=== PATIENT | female | born 1935 | race Caucasian/White ===

== ENCOUNTER 2016-07-20 07:56 | Inpatient (IN) | payer MEDICARE, BC ==
[~2016-07-20] VITALS: Ht 149.9 cm; Wt 55.9 kg
[~2016-07-20 07:56] MED LIST: ACULAR OPHTH DR10 ML OP; ALPHAGAN 10 ML10 ML OU; ARTIFICIAL TEAR15 M1 OP; ASPI325T6 PO; ASPIRIN 81M81 MG/TA2 PO; ASPIRIN E.C. 8181 MG PO; BEPREVE15 MG/ML OU; BYSTOLIC5 MG PO; CALCIUM 600600 M2 PO; CALCIUM CARBON600 M2 PO; CATAPRES 0.1MG0.1 MG PO; COSOPT 2%-0.5%10 ML OU; COUMADIN 1MG1 MG/TAB PO; FERROUS SU325 MG/TAB PO; FOSAMAX 70MG TA70 MG PO; HYGROTON 2525 MG/TAB PO; HYGROTON25 MG; HYGROTON25 MG PO; LASIX 20MG TABL20 MG PO; LOPRESSOR 225 MG/TAB PO; MELATONIN5 M1 SL; MIRALAX PA17 GM/Dose PO; NORCO 325 MG-51 TAB PO; NORVASC 10MG10 MG PO; NORVASC2.5 MG PO; OCUFLOX 10 ML10 ML OP; OMEGA-3 FISH1000 MG PO; OMEGA-3 FISH1200 MG PO; PRAVACHOL 20MG20 MG PO; PRAVACHOL10 MG PO; PRED FORTE 1 ML1 ML OP; PRINIVIL10 MG PO; PRINZIDE 12.5 M1 TA1 PO; PROBIOTIC FORMU1 CAP PO; SENOKOT S 50 MG1 TAB PO; SYNTHROID0.05 MG/TA PO; VITAMIN D31000 IU PO; XALATAN EYE DROPS OU; ZANTAC 150MG T150 MG PO; ZOLOFT 50MG50 MG PO
[2016-07-20 08:08] VITALS: BP 153/55; PULSE 59; TEMP 97.5
[2016-07-20] MEDS ORDERED: MULTAQ400 MG PO (09:00)
[2016-07-20 09:14] LABS: BASO # 0.1 (0.0-0.2); BASO % 1.1 % (0.0-2.0); EOS # 0.2 (0.0-0.7); EOS % 3.5 % (0-4.0); GRAN # 3.3 (1.4-6.5); GRAN % 61.4 % (42.2-75.2); LYMPH # 1.3 (1.2-3.4); LYMPH % 23.2 % (20.0-51.0); MEAN CELL VOLUME 95 fl (80.0-100.0); MEAN CORPUSCULAR HEMOGLOBIN 31 pg (27.0-31.0); MEAN CORPUSCULAR HGB CONC 33 g/dl (33.0-37.0); MEAN PLATELET VOLUME 12.1 fl (7.4-10.4); MONO # 0.6 (0.1-0.6); MONO % 10.4 % (1.7-9.3); PLATELET COUNT 186 K/mm3 (130-400); RED BLOOD COUNT 3.84 M/mm3 (4.10-5.30); REDCELL DISTRIBUTION WIDTH-CV 13.2 % (11.5-14.5); WHITE BLOOD COUNT 5.4 K/mm3 (4.8-10.8)
[2016-07-20 09:15] LABS: HEMATOCRIT 36.3 % (37.0-47.0)
[2016-07-20 09:17] LABS: PROTHROMBIN TIME 42.2 SECONDS (9.7-12.8)
[2016-07-20 09:25] LABS: ADJUSTED CALCIUM 9.5 mg/dL (8.4-10.2); ALBUMIN 3.3 gm/dL (3.5-5.0); BILIRUBIN,TOTAL 0.6 mg/dL (0.0-1.0); CALCIUM 8.9 mg/dL (8.4-10.2); CREATININE, serum 1.22 mg/dL (0.52-1.25); MAGNESIUM 2.1 mg/dL (1.6-2.3); POTASSIUM 4.7 mmol/L (3.4-5.0); TOTAL PROTEIN 6.2 gm/dL (6.4-8.2)
[2016-07-20 09:29] LABS: INR 3.7 (0.8-3.0)
[2016-07-20 11:17] VITALS: BP 155/63; PULSE 84; TEMP 98.3
[2016-07-20] MEDS ORDERED: LASIX 20MG TABL20 MG PO (15:39)
[2016-07-20] MEDS ORDERED: CATAPRES-TTS 10.1 M1 TD (15:40)
[2016-07-20 16:20] VITALS: BP 118/47; PULSE 48; TEMP 98
[2016-07-20 19:29] VITALS: BP 140/54; PULSE 52; TEMP 98.6
[2016-07-20 23:00] VITALS: BP 156/53; PULSE 44; TEMP 97.6
[2016-07-21] VITALS (7 sets, daily range): BP systolic 111–209; BP diastolic 41–69; PULSE 41–52; TEMP 97.9–98.8
[2016-07-21] MEDS ORDERED: NORVASC 5MG5 MG/TAB PO (09:49)
[2016-07-22 03:47] VITALS: BP 150/62; PULSE 55; TEMP 98.4
[2016-07-22 08:04] VITALS: BP 143/53; PULSE 47; TEMP 98.3
[2016-07-22] MEDS ORDERED: BETAPACE 120MG120 MG PO (10:18)
== END 2016-07-22 12:51 | disposition home or self-care (01) | DRG 310 ==
LOC: MEDICAL 07:56
PROVIDERS: Internal Medicine Cardiovascular Disease
DX: I48.0 Paroxysmal atrial fibrillation (principal); E78.5 Hyperlipidemia, unspecified; I10 Essential (primary) hypertension; I08.0 Rheumatic disorders of both mitral and aortic valves; I27.2 Other secondary pulmonary hypertension

== ENCOUNTER 2016-12-30 08:40 | Day surgery (SDC) | payer MEDICARE, BC ==
[~2016-12-30] VITALS: Ht 149.9 cm; Wt 56.6 kg
[~2016-12-30 08:40] MED LIST changes: +BETAPACE 120MG120 MG PO; +CATAPRES-TTS 10.1 M1 TD; +MULTAQ400 MG PO; +NORVASC 5MG5 MG/TAB PO
[2016-12-30 09:35] LABS: HEMATOCRIT 40.7 % (37.0-47.0); HEMOGLOBIN 13.6 g/dl (12.5-16.0); MEAN CELL VOLUME 97 fl (80.0-100.0); MEAN CORPUSCULAR HEMOGLOBIN 32 pg (27.0-31.0); MEAN CORPUSCULAR HGB CONC 33 g/dl (33.0-37.0); MEAN PLATELET VOLUME 11.3 fl (7.4-10.4); PLATELET COUNT 190 K/mm3 (130-400); RED BLOOD COUNT 4.21 M/mm3 (4.10-5.30); REDCELL DISTRIBUTION WIDTH-CV 12.8 % (11.5-14.5); WHITE BLOOD COUNT 6.5 K/mm3 (4.8-10.8)
[2016-12-30 09:41] LABS: INR 1.2 (0.8-3.0); PROTHROMBIN TIME 13.2 SECONDS (9.7-12.8)
[2016-12-30] MEDS ORDERED: ASMANEX TW110 MCG/Ac IH (09:43)
[2016-12-30 09:45] LABS: CALCIUM 9.2 mg/dL (8.4-10.2); CREATININE, serum 1.02 mg/dL (0.52-1.25); POTASSIUM 4.9 mmol/L (3.4-5.0)
[2016-12-30 10:50] VITALS: BP 187/72; PULSE 43
[2016-12-30 15:18] VITALS: BP 149/61; PULSE 60; TEMP 98.4
[2016-12-30 19:46] VITALS: BP 131/57; PULSE 60; TEMP 98.4
[2016-12-30 23:40] VITALS: BP 123/43; PULSE 61; TEMP 98.3
[2016-12-31 04:20] VITALS: BP 144/56; PULSE 61; TEMP 98
[2016-12-31 09:28] VITALS: BP 100/42; BP 84/34; PULSE 63; TEMP 98.5
== END 2016-12-31 13:30 | disposition home or self-care (01) ==
LOC: COL.CAR 08:40 → MEDICAL 13:09 → COL.CAR 12-31 13:30
PROVIDERS: Internal Medicine Cardiovascular Disease
DX: I49.5 Sick sinus syndrome (principal); Z45.09 Encounter for adjustment and management of other cardiac device; I10 Essential (primary) hypertension; J45.909 Unspecified asthma, uncomplicated; I12.9 Hypertensive chronic kidney disease with stage 1 through stage 4 chronic kidney disease, or unspecified chronic kidney disease; N18.9 Chronic kidney disease, unspecified; I27.2 Other secondary pulmonary hypertension; E87.5 Hyperkalemia; I34.0 Nonrheumatic mitral (valve) insufficiency; E78.5 Hyperlipidemia, unspecified; R60.9 Edema, unspecified; I08.0 Rheumatic disorders of both mitral and aortic valves; M48.00 Spinal stenosis, site unspecified; I25.10 Atherosclerotic heart disease of native coronary artery without angina pectoris; H40.9 Unspecified glaucoma; E03.9 Hypothyroidism, unspecified; M81.0 Age-related osteoporosis without current pathological fracture; I48.0 Paroxysmal atrial fibrillation; Z79.01 Long term (current) use of anticoagulants; Z80.9 Family history of malignant neoplasm, unspecified
CPT/HCPCS: OP; C1769; C1785; C1898; J0690; J2250; J3010; J7030

== ENCOUNTER 2018-05-22 18:45 | Emergency (ER) | payer MEDICARE, BC ==
[~2018-05-22] VITALS: Ht 149.9 cm; Wt 53.2 kg
[~2018-05-22 18:45] MED LIST changes: +ASMANEX TW110 MCG/Ac IH
[2018-05-22 18:58] VITALS: TEMP 98
[2018-05-22] MEDS ORDERED: OS-CAL 500 + D1 TAB (19:10)
[2018-05-22] MEDS ORDERED: PROAIR HFA0.09 MG/AC IH (19:13)
[2018-05-22] MEDS ORDERED: COUMADIN 2MG2 MG/TAB PO (19:15)
[2018-05-22] MEDS ORDERED: RHOPRESSA2.5 ML OU (19:16)
[2018-05-22 19:57] LABS: BASO # 0.1 (0.0-0.2); BASO % 0.9 % (0.0-2.0); EOS # 0.2 (0.0-0.7); EOS % 1.8 % (0-4.0); GRAN # 4.8 (1.4-6.5); GRAN % 58.5 % (42.2-75.2); HEMATOCRIT 45.1 % (37.0-47.0); HEMOGLOBIN 15.3 g/dl (12.5-16.0); LYMPH # 2.3 (1.2-3.4); LYMPH % 28.8 % (20.0-51.0); MEAN CELL VOLUME 94 fl (80.0-100.0); MEAN CORPUSCULAR HEMOGLOBIN 32 pg (27.0-31.0); MEAN CORPUSCULAR HGB CONC 34 g/dl (33.0-37.0); MEAN PLATELET VOLUME 12.2 fl (7.4-10.4); MONO # 0.8 (0.1-0.6); MONO % 9.6 % (1.7-9.3); PLATELET COUNT 195 K/mm3 (130-400); REDCELL DISTRIBUTION WIDTH-CV 12.7 % (11.5-14.5)
[2018-05-22 20:03] LABS: INR 3.8 (0.8-3.0)
[2018-05-22 20:06] LABS: ALANINE AMINOTRANSFERASE 31 U/L (9-52); ALBUMIN 4.3 gm/dL (3.5-5.0); ALKALINE PHOSPHATASE 75 U/L (50-136); ANION GAP 8 mmol/L (7-16); AST,SGOT 41 U/L (15-37); BLOOD UREA NITROGEN 16 mg/dL (7-17); CALCIUM 9.5 mg/dL (8.4-10.2); CARBON DIOXIDE 25 mmol/L (22-30); CHLORIDE 106 mmol/L (98-107); CREATININE, serum 1.07 mg/dL (0.52-1.25); GLUCOSE 98 mg/dL (74-106); POTASSIUM 4.2 mmol/L (3.4-5.0); SODIUM 139 mmol/L (137-145); TOTAL PROTEIN 7.7 gm/dL (6.4-8.2)
[2018-05-22 20:18] LABS: TROPONIN-I < 0.012 ng/mL (0.000-0.034)
[2018-05-22 21:09] VITALS: BP 111/48; PULSE 60
== END 2018-05-22 21:09 | disposition home or self-care (01) ==
LOC: COL.ER 18:45
PROVIDERS: Emergency Medicine
DX: I10 Essential (primary) hypertension (principal); E03.9 Hypothyroidism, unspecified; I48.91 Unspecified atrial fibrillation; E78.5 Hyperlipidemia, unspecified; J44.9 Chronic obstructive pulmonary disease, unspecified; Z79.82 Long term (current) use of aspirin

== ENCOUNTER 2021-04-30 14:29 | Inpatient (IN) | payer MEDICARE, BC ==
[~2021-04-30] VITALS: Ht 149.9 cm; Wt 48.8 kg
[~2021-04-30 14:29] MED LIST changes: +COUMADIN 2MG2 MG/TAB PO; +OS-CAL 500 + D1 TAB; +PROAIR HFA0.09 MG/AC IH; +RHOPRESSA2.5 ML OU
[2021-04-30 17:19] LABS: BASO # 0.1 K/mm3 (0.0-0.2); BASO % 0.4 % (0.0-2.0); GRAN # 15.7 K/mm3 (1.4-6.5); GRAN % 85.3 % (42.2-75.2); HEMATOCRIT 40.2 % (37.0-47.0); HEMOGLOBIN 13.7 g/dl (12.5-16.0); LYMPH # 1.3 K/mm3 (1.2-3.4); LYMPH % 7.1 % (20.0-51.0); MEAN CELL VOLUME 92 fl (80.0-100.0); MEAN CORPUSCULAR HEMOGLOBIN 31 pg (27-31); MEAN CORPUSCULAR HGB CONC 34 g/dl (33.0-37.0); MONO # 1.2 K/mm3 (0.1-0.6); MONO % 6.7 % (1.7-9.3); PLATELET COUNT 238 K/mm3 (130-400); RED BLOOD COUNT 4.36 M/mm3 (4.10-5.30); REDCELL DISTRIBUTION WIDTH-CV 12.7 % (11.5-14.5)
[2021-04-30 17:26] LABS: INR 3.8 (0.8-3.0)
[2021-04-30 17:27] LABS: COLLECTION METHOD CATHETER
[2021-04-30 17:32] LABS: MUCOUS Present (NOT PRESENT); PH 5 (5-8); SQUAMOUS EPITHELIAL 0-2 /hpf (0-10); URINE APPEARANCE Clear (CLEAR/HAZY); URINE BACTERIA None Seen (NONE SEEN); URINE BILIRUBIN Negative (NEGATIVE); URINE BLOOD 1+ (NEGATIVE); URINE COLOR Yellow (YELLOW); URINE GLUCOSE Negative (NEGATIVE); URINE KETONE Trace (NEGATIVE); URINE LEUKOCYTE ESTERASE Negative (NEGATIVE); URINE NITRATE Negative (NEGATIVE); URINE PROTEIN(semi-quant) Negative (NEGATIVE); URINE UROBILINOGEN Negative (NEGATIVE)
[2021-04-30 17:48] LABS: BILIRUBIN,TOTAL 0.8 mg/dL (0.2-1.2); CALCIUM 9.2 mg/dL (8.4-10.2); CREATININE, serum 1.39 mg/dL (0.57-1.11); POTASSIUM 3.7 mmol/L (3.5-4.5); TOTAL PROTEIN 7.7 gm/dL (6.2-8.1)
--- NOTE | 2021-04-30 20:50 | NUR ---
Pt. arrived to the floor via stretcher. Pt. transfered to bed with 3 assist and slide board. Pt. is A&OX3, assessment complete. INT to lt. ac patent. Pt. reports pain to rt. hip at a 7 on pain scale. Gave pain meds. Call light within reach.
[2021-04-30] MEDS ORDERED: COUMADIN 1MG1 MG/TAB PO (21:03)
[2021-04-30] MEDS ORDERED: COUMADIN 2MG2 MG/TAB PO (21:05)
[2021-04-30] MEDS ORDERED: COLACE 100100 MG/CAP PO (21:06)
[2021-04-30] MEDS ORDERED: MIRALAX PA17 GM/Dose PO (21:07)
[2021-04-30] MEDS ORDERED: HCTZ12.5TAB PO (21:09)
[2021-04-30 23:10] VITALS: BP 135/59; PULSE 61; TEMP 100.8
[2021-04-30 23:50] VITALS: BP 107/47; PULSE 60; TEMP 98.4
[2021-05-01 03:54] VITALS: BP 122/53; PULSE 60; TEMP 98.1
[2021-05-01 08:00] VITALS: BP 121/67; PULSE 59; TEMP 98.7
[2021-05-01 08:45] LABS: HEMOGLOBIN 12.5 g/dl (12.5-16.0); MEAN CELL VOLUME 92 fl (80.0-100.0); MEAN CORPUSCULAR HEMOGLOBIN 32 pg (27-31); MEAN CORPUSCULAR HGB CONC 34 g/dl (33.0-37.0); MEAN PLATELET VOLUME 12.2 fl (7.4-10.4); PLATELET COUNT 191 K/mm3 (130-400); RED BLOOD COUNT 3.96 M/mm3 (4.10-5.30)
[2021-05-01 08:47] LABS: HEMATOCRIT 36.6 % (37.0-47.0)
[2021-05-01 08:58] LABS: CALCIUM 8.6 mg/dL (8.4-10.2); CREATININE, serum 1.26 mg/dL (0.57-1.11); INR 3.6 (0.8-3.0); POTASSIUM 3.6 mmol/L (3.5-4.5); PROTHROMBIN TIME 40.7 SECONDS (9.7-12.8)
[2021-05-01 10:05] LABS: BAND 2 % (0-10); LYMPHOCYTE 5 % (20.0-51.0); NEUTROPHILS 81 % (42.0-75.2); PLATELET ESTIMATE NORMAL (NORMAL)
--- NOTE | 2021-05-01 10:34 | NUR ---
Initial visit; Patient thanked Tax Agent for looking in on her and offering God's blessings.
--- NOTE | 2021-05-01 11:12 | NUR ---
[facility] met with patient to discuss discharge planning. Patient's son, Shant (ph#[phone]) is at bedside. Patient lives alone in [place] and sees Dr. Peggy Talavera for primary care. Patient obtains medications from [facility] with no difficulties and normally uses a cane for ambulation. Patient is normally independent with ADLS. Patient states she has DPOA-HC that designates her children, Shant and Janessa. SW did not locate copy in EMR. SW discussed the possible need for rehab and patient is agreeable to this if it's determined to be needed. SW reviewed options including locals SNFs and IPR. Patient's preferences for rehab are 1)[facility] and 2) [facility]. SUKUMAR contacted Anuradha at [facility] and faxed referral. SUKUMAR contacted Anastasia at [facility] who advised they are not able to take new referrals at this time. Discharge Plan: Pending referral from [facility] SNF
[2021-05-01 11:18] VITALS: BP 146/59; PULSE 60; TEMP 98.9
--- NOTE | 2021-05-01 13:25 | NUR ---
Anuradha at [facility] advised they are able to accept patient for skilled stay.
[2021-05-01 15:29] VITALS: BP 107/70; PULSE 60; TEMP 97.9
[2021-05-01 19:36] VITALS: BP 123/54; PULSE 60; TEMP 97.9
[2021-05-02] VITALS (12 sets, daily range): BP systolic 98–139; BP diastolic 48–101; PULSE 60–125; TEMP 97.3–98.5
--- NOTE | 2021-05-02 06:33 | NUR ---
PT CONFUSED AND ATTEMPTING TO GET OUT OF BED, STATES SHE IS GOING HOME, C/O SEVERE PAIN IN RIGHT HIP, REFUSES TO TAKE ANY MEDS PO, HAS BEEN INCONTINENT OF STOOL X3 THIS SHIFT, WAS REFUSING TO LET STAFF CLEAN HER UP, RN AND SHAREPOINT ARCHITECT ABLE TO CONVINCE PT SHE COULD NOT SIT IN FECES. THIS AM, HAS BEGUN PULLING AT IV SITE AND IV TUBING, SITE SECURED WITH RAMONA WRAP. DUMONT SECURED TO LEG WITH STAT LOCK, DRAINING CLEAR YELLOW URINE. PT REORIENTED TO WHY AND WHERE SHE IS. BED ALARM ON, CALL LIGHT IN REACH. NPO SINCE MIDNIGHT
[2021-05-02 07:19] LABS: INR 1.4 (0.8-3.0); PROTHROMBIN TIME 15.6 SECONDS (9.7-12.8)
[2021-05-02 07:38] LABS: CALCIUM 8.2 mg/dL (8.4-10.2); CREATININE, serum 1.01 mg/dL (0.57-1.11)
[2021-05-02 07:43] LABS: POTASSIUM 2.9 mmol/L (3.5-4.5)
--- NOTE | 2021-05-02 08:02 | NUR ---
TRIED TO REACH SON JANET TO NOTIFIY PT OF SURGERY THIS MORNING, LEFT VOICEMAIL AND NO ANSWER. CALLED THE NUMBER
[2021-05-02 08:10] LABS: HEMOGLOBIN 12.3 g/dl (12.5-16.0); MEAN CELL VOLUME 90 fl (80.0-100.0); MEAN CORPUSCULAR HEMOGLOBIN 31 pg (27-31); MEAN CORPUSCULAR HGB CONC 34 g/dl (33.0-37.0); MEAN PLATELET VOLUME 12.9 fl (7.4-10.4); PLATELET COUNT 180 K/mm3 (130-400); RED BLOOD COUNT 3.96 M/mm3 (4.10-5.30); REDCELL DISTRIBUTION WIDTH-CV 12.8 % (11.5-14.5)
[2021-05-02 08:13] LABS: HEMATOCRIT 35.8 % (37.0-47.0)
[2021-05-02 09:59] LABS: BAND 4 % (0-10); LYMPHOCYTE 4 % (20.0-51.0); NEUTROPHILS 82 % (42.0-75.2); PLATELET ESTIMATE NORMAL (NORMAL)
--- NOTE | 2021-05-02 14:36 | NUR ---
PT WITH INCREASED CONFUSION THIS SHIFT, FAMILY MEMBERS HAVING TO REMIND HER SHE'S IN THE HOSPITAL. ATTEMPTED TO GET OUT OF BED ONCE. POTASSIUM WAS REPLACED AND IS NOW 4.O. PT TAKEN TO HAVE SURGICAL REPAIR OF RIGHT HIP AT AROUND 1415.
--- NOTE | 2021-05-02 17:42 | NUR ---
PT ARRIVED BACK TO ROOM 342 VIA BED. VSS. CMS INTACT, NO DRAINAGE NOTED TO RIGHT HIP DRAINAGE. PT ALERT BUT DISORIENTED TO SITUATION. PT DENIES PAIN. ICE PLACED TO HIP. ROSANNA FERRARO AND SCD'S ON. CALL LIGHT WITHIN REACH.
[2021-05-03 03:57] VITALS: BP 114/85; PULSE 102; TEMP 97.1
--- NOTE | 2021-05-03 04:49 | NUR ---
PT HAS RESTED/SLEPT MOST OF THE NIGHT. PT STATES HER PAIN IS MINIMAL UNLESS SHE MOVES. PT WAS VERY DISORIENTED LAST NIGHT, EXTREMELY FORGETFUL. PT'S SON STAYED FOR SEVERAL HOURS AFTER [facility]FEW TO HELP RE-ORIENT HER. SHE SEEMS A LITTLE LESS CONFUSED/FORGETFUL THIS MORNING. AVOIDING NARCOTICS TO PREVENT INCREASED CONFUSION.
--- NOTE | 2021-05-03 06:58 | NUR ---
bedside shift report received from DANIEL Guaman
[2021-05-03 07:01] VITALS: BP 106/64; PULSE 102; TEMP 97.6
[2021-05-03 07:57] LABS: INR 1.1 (0.8-3.0); PROTHROMBIN TIME 12.6 SECONDS (9.7-12.8)
[2021-05-03 08:08] LABS: CALCIUM 8.2 mg/dL (8.4-10.2); CREATININE, serum 0.95 mg/dL (0.57-1.11); POTASSIUM 4.1 mmol/L (3.5-4.5)
--- NOTE | 2021-05-03 08:09 | NUR ---
sitting up in bed eating breakfast, son at bedside
[2021-05-03 08:47] LABS: BASO % 0.3 % (0.0-2.0); EOS # 0.1 K/mm3 (0.0-0.7); EOS % 0.8 % (0.0-4.0); GRAN # 12.5 K/mm3 (1.4-6.5); GRAN % 87.4 % (42.2-75.2); HEMOGLOBIN 11.9 g/dl (12.5-16.0); LYMPH % 6.7 % (20.0-51.0); MEAN CELL VOLUME 91 fl (80.0-100.0); MEAN CORPUSCULAR HEMOGLOBIN 31 pg (27-31); MEAN CORPUSCULAR HGB CONC 35 g/dl (33.0-37.0); MEAN PLATELET VOLUME 13.3 fl (7.4-10.4); MONO # 0.6 K/mm3 (0.1-0.6); MONO % 4.4 % (1.7-9.3); PLATELET COUNT 164 K/mm3 (130-400); RED BLOOD COUNT 3.79 M/mm3 (4.10-5.30); REDCELL DISTRIBUTION WIDTH-CV 12.9 % (11.5-14.5)
[2021-05-03 08:48] LABS: HEMATOCRIT 34.5 % (37.0-47.0)
--- NOTE | 2021-05-03 09:10 | NUR ---
had breakfast and tolerated well, is oriented this am, full assessment completed, see interventions for further info, denies needs
--- NOTE | 2021-05-03 09:54 | NUR ---
physical therapy in to work with patient
--- NOTE | 2021-05-03 10:06 | NUR ---
sitting up in recliner after working with therapy, denies pain or needs at this time
--- NOTE | 2021-05-03 11:10 | NUR ---
Dr Deluca in to see patient
[2021-05-03 11:25] VITALS: BP 108/65; PULSE 106; TEMP 97.3
--- NOTE | 2021-05-03 12:00 | NUR ---
remains in chair, lunch ordered
--- NOTE | 2021-05-03 14:00 | NUR ---
assisted back to bed after lunch, juarez catheter discontinued, had been incontinent of very small amount stool and care provided, instructed to call when she needs to voids and verbalizes understanding
[2021-05-03 16:06] VITALS: BP 103/77; PULSE 106; TEMP 98.1
--- NOTE | 2021-05-03 17:00 | NUR ---
has ordered supper, denies urge to void
--- NOTE | 2021-05-03 18:46 | NUR ---
bedside shift report given to DANIEL Guaman
[2021-05-03 20:01] VITALS: BP 131/101; PULSE 90; TEMP 98
--- NOTE | 2021-05-03 22:00 | NUR ---
PT UNABLE TO URINATE. BLADDER SCAN READING POST VOID ATTEMPT WAS 210 mL.
[2021-05-04 00:21] VITALS: BP 114/74; PULSE 101; TEMP 98.6
[2021-05-04 04:29] VITALS: BP 157/70; PULSE 65; TEMP 98.1
--- NOTE | 2021-05-04 05:32 | NUR ---
RESTING QUIETLY. NO N/V. PT'S MENTAL STATUS MUSCH IMPROVED OVER 24 HOURS AGO. PT VOIDING. GAIT FAIRLY STEADY USING WALKER.
[2021-05-04 07:22] LABS: HEMATOCRIT 31.6 % (37.0-47.0)
[2021-05-04 07:33] LABS: CALCIUM 8.4 mg/dL (8.4-10.2); CREATININE, serum 1.36 mg/dL (0.57-1.11); POTASSIUM 3.9 mmol/L (3.5-4.5)
[2021-05-04 07:57] VITALS: BP 145/51; PULSE 63; TEMP 98.1
[2021-05-04 08:30] LABS: BASO % 0.2 % (0.0-2.0); GRAN # 15.3 K/mm3 (1.4-6.5); GRAN % 80.1 % (42.2-75.2); LYMPH # 2.1 K/mm3 (1.2-3.4); LYMPH % 11.1 % (20.0-51.0); MEAN CELL VOLUME 93 fl (80.0-100.0); MEAN CORPUSCULAR HEMOGLOBIN 32 pg (27-31); MEAN CORPUSCULAR HGB CONC 34 g/dl (33.0-37.0); MONO # 1.5 K/mm3 (0.1-0.6); MONO % 7.8 % (1.7-9.3); PLATELET COUNT 214 K/mm3 (130-400); RED BLOOD COUNT 3.47 M/mm3 (4.10-5.30)
[2021-05-04 08:40] LABS: INR 1.1 (0.8-3.0)
[2021-05-04 08:47] LABS: HEMATOCRIT 32.3 % (37.0-47.0)
--- NOTE | 2021-05-04 09:30 | NUR ---
Pt doing well this morning. She has minimal complaints/needs. Pt is very pleasent. Physicians have discussed her going to inpatient rehab which she will be screened for. Pt denies any needs, call light withing reach.
[2021-05-04 12:02] VITALS: BP 117/47; PULSE 65; TEMP 97.9
[2021-05-04] MEDS ORDERED: DULCOLAX S10 MG/SUPP RC (12:13)
[2021-05-04] MEDS ORDERED: MULTI VITAMINS1 TAB PO (12:13)
[2021-05-04] MEDS ORDERED: VITAMINC500CH PO (12:13)
[2021-05-04] MEDS ORDERED: TYLENOL 500MG500 MG PO (12:14)
[2021-05-04] MEDS ORDERED: OSCAL 500 TAB500 MG PO (12:14)
[2021-05-04] MEDS ORDERED: FISH OIL1000 MG PO (12:14)
[2021-05-04] MEDS ORDERED: NORCO 325 MG-51 TAB PO (12:15)
[2021-05-04] MEDS ORDERED: COUMADIN 2MG2 MG/TAB PO (12:17)
[2021-05-04] MEDS ORDERED: LOVENOX 8080 MG/0.8 SQ (12:17)
--- NOTE | 2021-05-04 12:37 | NUR ---
Called and updated pt's daughter on how she is doing and transferring to [facility]. Waiting to get UA before she is moved over. Pt is sitting up in the chair, minimal complaints. She is not wanting lunch, she reports that she is still full from breakfast. Call light within reach, will continu to monitor
[2021-05-04 12:47] LABS: COLLECTION METHOD CATHETER
--- NOTE | 2021-05-04 12:50 | NUR ---
IPR was consulted. Claudia, IPR Director, reports that they are able to accept the patient today. SW contacted and updated the patient's son, Shant. Shant is in agreement to the plan. The patient is to discharge today, 05/04, to [facility]. No additional needs at this time.
[2021-05-04 13:04] LABS: PH 5 (5-8); SQUAMOUS EPITHELIAL 0-2 /hpf (0-10); URINE APPEARANCE Hazy (CLEAR/HAZY); URINE BACTERIA Rare /hpf (NONE SEEN); URINE BILIRUBIN Negative (NEGATIVE); URINE BLOOD Negative (NEGATIVE); URINE COLOR Yellow (YELLOW); URINE GLUCOSE Negative (NEGATIVE); URINE KETONE Negative (NEGATIVE); URINE LEUKOCYTE ESTERASE 1+ (NEGATIVE); URINE NITRATE Negative (NEGATIVE); URINE PROTEIN(semi-quant) Negative (NEGATIVE)
[2021-05-04 13:05] LABS: URINE UROBILINOGEN 2.0 mg/dL (NEGATIVE)
[2021-05-04] MEDS ORDERED: OMNICEF 300MG300 MG PO (13:25)
--- NOTE | 2021-05-04 14:20 | NUR ---
Pt moved over to inpatient rehab
== END 2021-05-04 14:20 | DRG 481 ==
LOC: COL.ER 14:29 → SURG 16:29
PROVIDERS: Orthopaedic Surgery; Physician Assistant; ADMIT Internal Medicine
PROC: 0QS606Z Reposition Right Upper Femur with Intramedullary Internal Fixation Device, Open Approach (ICD-10-PCS; principal; 2021-05-02 08:00)
DX: S72.141A Displaced intertrochanteric fracture of right femur, initial encounter for closed fracture (principal); E87.1 Hypo-osmolality and hyponatremia; I48.0 Paroxysmal atrial fibrillation; I25.10 Atherosclerotic heart disease of native coronary artery without angina pectoris; E78.5 Hyperlipidemia, unspecified; I12.9 Hypertensive chronic kidney disease with stage 1 through stage 4 chronic kidney disease, or unspecified chronic kidney disease; N18.30 Chronic kidney disease, stage 3 unspecified; Z90.49 Acquired absence of other specified parts of digestive tract; Z85.828 Personal history of other malignant neoplasm of skin; Z98.49 Cataract extraction status, unspecified eye; I27.20 Pulmonary hypertension, unspecified; Z79.82 Long term (current) use of aspirin; E03.9 Hypothyroidism, unspecified; Z79.01 Long term (current) use of anticoagulants; R79.1 Abnormal coagulation profile; Z95.0 Presence of cardiac pacemaker; E87.6 Hypokalemia; W19.XXXA Unspecified fall, initial encounter; R50.9 Fever, unspecified
CPT/HCPCS: 99223-AI; 99232-AI; 99239; A4314; A9284; C1713; J0690; J1650; J2270; J3480

== ENCOUNTER 2021-05-04 11:50 | Inpatient (IN) | payer MEDICARE, BC ==
[~2021-05-04] VITALS: Ht 147.3 cm; Wt 50.1 kg
[~2021-05-04 11:50] MED LIST changes: +COLACE 100100 MG/CAP PO; +HCTZ12.5TAB PO
[2021-05-04] MEDS ORDERED: VITAMINC500CH PO (12:13)
[2021-05-04] MEDS ORDERED: MULTI VITAMINS1 TAB PO (12:13)
[2021-05-04] MEDS ORDERED: DULCOLAX S10 MG/SUPP RC (12:13)
[2021-05-04] MEDS ORDERED: TYLENOL 500MG500 MG PO (12:14)
[2021-05-04] MEDS ORDERED: FISH OIL1000 MG PO (12:14)
[2021-05-04] MEDS ORDERED: OSCAL 500 TAB500 MG PO (12:14)
[2021-05-04] MEDS ORDERED: NORCO 325 MG-51 TAB PO (12:15)
[2021-05-04] MEDS ORDERED: COUMADIN 2MG2 MG/TAB PO (12:17)
[2021-05-04] MEDS ORDERED: LOVENOX 8080 MG/0.8 SQ (12:17)
[2021-05-04] MEDS ORDERED: OMNICEF 300MG300 MG PO (13:25)
--- NOTE | 2021-05-04 15:03 | NUR ---
IPR scoring to be done tomorrow with IPR nurse
[2021-05-04 16:15] VITALS: BP 152/59; PULSE 60; TEMP 97.8
[2021-05-05 05:15] VITALS: BP 109/71; PULSE 58; TEMP 97.9
--- NOTE | 2021-05-05 06:55 | NUR ---
Patient is resting in bed and c/o discomfort and not pain in hip. Call light and bedside table are within reach. Will continue to monitor patient throughout shift.
[2021-05-05 09:49] LABS: INR 1.5 (0.8-3.0); PROTHROMBIN TIME 16.2 SECONDS (9.7-12.8)
--- NOTE | 2021-05-05 09:54 | NUR ---
SW met with the patient to complete intake, as the patient is new to [facility]. The patient lives alone in [place]. She reports independence with ADLs before hospitalization and has a cane and walker. The patient's PCP is Dr. Peggy Talavera and she receives her medications from [facility]. The patient does not have a DPOA-HC, but she states that she does have one completed and that the document is at home. She states that she designated both her children: Shant (ph#[phone]) and Janessa. Janessa lives in [place]. The patient reports that therapy has been a lot so far and that she is tired. She had no questions or concerns for SW at this time. SW to continue to follow.
--- NOTE | 2021-05-05 13:15 | NUR ---
Follow-up visit; Patient states that she is doing better and thanked for stopping by.
[2021-05-05 16:18] VITALS: BP 97/40; PULSE 60; TEMP 98
[2021-05-05 21:28] VITALS: BP 136/65; PULSE 60
--- NOTE | 2021-05-05 23:07 | NUR ---
Patient assessed around 2100. Alert and oriented, and able to make needs known. Reported minimal pain to right hip. Dressing to site CDI. Assisted to bathroom, then assisted to bed as requested. Patient voices no questions, needs, or concerns at this time. In bed with call light within reach.
[2021-05-06 05:26] VITALS: BP 112/48; PULSE 61; TEMP 98.3
--- NOTE | 2021-05-06 05:34 | NUR ---
Patient has been resting in bed with call light within reach. Assisted to bathroom. Voices no questions, needs, or concerns at this time.
--- NOTE | 2021-05-06 07:36 | NUR ---
PT ASSESSED. NO COMPLAINTS OF PAIN OR DYSPNEA. NO SIGNS OR SYMPTOMS OF DISTRESS. PT AWAKE AND EATING BREAKFAST. CALL LIGHT WITHIN REACH
[2021-05-06 09:29] LABS: HEMOGLOBIN 11.4 g/dl (12.5-16.0); MEAN CELL VOLUME 97 fl (80.0-100.0); MEAN CORPUSCULAR HEMOGLOBIN 32 pg (27-31); MEAN CORPUSCULAR HGB CONC 33 g/dl (33.0-37.0); PLATELET COUNT 287 K/mm3 (130-400); RED BLOOD COUNT 3.54 M/mm3 (4.10-5.30); REDCELL DISTRIBUTION WIDTH-CV 13.4 % (11.5-14.5)
[2021-05-06 09:30] LABS: PROTHROMBIN TIME 22.1 SECONDS (9.7-12.8)
[2021-05-06 09:31] LABS: HEMATOCRIT 34.3 % (37.0-47.0)
[2021-05-06 09:39] LABS: CALCIUM 8.3 mg/dL (8.4-10.2); CREATININE, serum 1.18 mg/dL (0.57-1.11); MAGNESIUM 1.8 mg/dL (1.6-2.6); POTASSIUM 3.9 mmol/L (3.5-4.5)
[2021-05-06 10:15] LABS: BAND 7 % (0-10); BASOPHIL 1 % (0-2); EOSINOPHIL 3 % (0-4); LYMPHOCYTE 17 % (20.0-51.0); NEUTROPHILS 66 % (42.0-75.2); NUCLEATED RED BLOOD CELL 1 (0-6); PLATELET ESTIMATE NORMAL (NORMAL)
--- NOTE | 2021-05-06 13:07 | NUR ---
SUKUMAR met with the patient to present and review the IPR Team Conference Note. The team has set a tentative discharge for next Tuesday, 05/13, with home health PT/OT. The patient is agreeable to the plan. She states that her daughter will be coming to stay with her for awhile when she returns home. The patient was unsure on preference for home health and would like some time to look over the list. SUKUMAR then contacted and updated the patient's son, hSant, on the above. Shant is in agreement to the plan. A patient/family meeting was scheduled for next Tuesday, 05/11, at 0930. Shant plans to be present during the meeting. SUKUMAR to update IPR Director.
[2021-05-06 18:28] VITALS: BP 92/47; PULSE 63; TEMP 98.5
[2021-05-06 20:03] VITALS: BP 102/44; PULSE 66; TEMP 98.2
[2021-05-07 06:48] VITALS: BP 85/70; PULSE 83; TEMP 98.3
--- NOTE | 2021-05-07 06:58 | NUR ---
PT REPORTS NOT SLEEPING MUCH DURING NIGHT BUT DENIES PAIN. SCHEDULED TYLENOL WAS ADMINISTERED. PT AMBULATED TO BR WITH SBA ET WALKER. DENIES OTHER NEEDS.
--- NOTE | 2021-05-07 07:23 | NUR ---
PT ASSESSED. NO COMPLAINTS OF PAIN OR DYSPNEA. NO SIGNS OR SYMPTOMS OF DISTRESS. CALL LIGHT WITHIN REACH. BREAKFAST DELIVERED
[2021-05-07 10:45] LABS: INR 2.4 (0.8-3.0); PROTHROMBIN TIME 26.8 SECONDS (9.7-12.8)
[2021-05-07 17:16] VITALS: BP 110/60; PULSE 61; TEMP 98.7
[2021-05-08 01:09] VITALS: BP 126/46; PULSE 61; TEMP 98.4
[2021-05-08 05:47] VITALS: BP 153/54; PULSE 61; TEMP 98.1
[2021-05-08 09:37] LABS: INR 2.4 (0.8-3.0); PROTHROMBIN TIME 26.8 SECONDS (9.7-12.8)
[2021-05-08 17:00] VITALS: BP 149/53; PULSE 60; TEMP 98
--- NOTE | 2021-05-08 19:14 | NUR ---
RECEIVED CHANGE OF SHIFT REPORT FROM DAY SHIFT RN.
[2021-05-08 21:42] VITALS: BP 133/51; PULSE 65
[2021-05-09 03:18] VITALS: BP 148/59; PULSE 79; TEMP 97.9
--- NOTE | 2021-05-09 06:45 | NUR ---
CHANGE OF SHIFT REPORT GIVEN TO DAY SHIFT RNJANET.
[2021-05-09 09:12] LABS: INR 2.4 (0.8-3.0); PROTHROMBIN TIME 26.9 SECONDS (9.7-12.8)
--- NOTE | 2021-05-09 10:02 | NUR ---
PT UP TO RECLINER FOR BREAKFAST, UP TO BR VOIDED AND RETURNED SBA X1. PT DENIES NEEDS OR PAIN AT THIS TIME.
[2021-05-09 16:41] VITALS: BP 149/66; PULSE 67; TEMP 98
--- NOTE | 2021-05-09 18:50 | NUR ---
RECEIVED CHANGE OF SHIFT REPORT FROM DAY SHIFT RN.
[2021-05-10 01:07] VITALS: BP 141/51; PULSE 67; TEMP 98.2
--- NOTE | 2021-05-10 02:16 | NUR ---
SLEEPING, DOES NOT WAKE WHEN NURSING ENTERS ROOM. OBSERVED BREATHING NONLABORED AND EVEN. BED ALARM ON WHEN IN BED. HAS BEEN UP TO BATHROOM WITH ASST X1 WITH NO OBSERVED GAIT DISTURBANCES, DENIED CHEST PAIN/SOA AT TIME OF ACTIVITY. CALL LIGHT WITHIN REACH.
[2021-05-10 05:21] VITALS: BP 138/59; PULSE 66; TEMP 97.8
--- NOTE | 2021-05-10 07:05 | NUR ---
CHANGE OF SHIFT REPORT GIVEN TO DAY SHIFT RNJANET.
[2021-05-10 08:52] LABS: HEMOGLOBIN 11.3 g/dl (12.5-16.0); MEAN CELL VOLUME 96 fl (80.0-100.0); MEAN CORPUSCULAR HEMOGLOBIN 32 pg (27-31); MEAN CORPUSCULAR HGB CONC 33 g/dl (33.0-37.0); MEAN PLATELET VOLUME 11.1 fl (7.4-10.4); PLATELET COUNT 337 K/mm3 (130-400); RED BLOOD COUNT 3.59 M/mm3 (4.10-5.30); REDCELL DISTRIBUTION WIDTH-CV 15.2 % (11.5-14.5)
[2021-05-10 08:58] LABS: HEMATOCRIT 34.3 % (37.0-47.0)
[2021-05-10 09:03] LABS: CALCIUM 8.5 mg/dL (8.4-10.2); CREATININE, serum 0.92 mg/dL (0.57-1.11); POTASSIUM 4.6 mmol/L (3.5-4.5)
[2021-05-10 09:05] LABS: INR 2.2 (0.8-3.0); PROTHROMBIN TIME 24.8 SECONDS (9.7-12.8)
[2021-05-10 10:13] LABS: BAND 3 % (0-10); BASOPHIL 2 % (0-2); EOSINOPHIL 1 % (0-4); LYMPHOCYTE 19 % (20.0-51.0); METAMYELOCYTE 3 % (0-0); MYELOCYTE 3 % (0-0); NEUTROPHILS 65 % (42.0-75.2); PLATELET ESTIMATE NORMAL (NORMAL)
[2021-05-10 10:14] LABS: HYPOCHROMIA 1+
--- NOTE | 2021-05-10 10:46 | NUR ---
PT RESTING IN RECLINER, UP TO BR WITH ASSIST.
[2021-05-10 17:18] VITALS: BP 118/64; PULSE 60; TEMP 98.1
--- NOTE | 2021-05-10 21:00 | NUR ---
PT HAS BEEN ON PHONE THIS EVENING. PT REPORTS NO PAIN.
[2021-05-11 00:04] VITALS: BP 128/62; PULSE 61; TEMP 97.8
[2021-05-11 05:19] VITALS: BP 137/56; PULSE 60; TEMP 98
--- NOTE | 2021-05-11 06:46 | NUR ---
shift report received from DANIEL Renteria
--- NOTE | 2021-05-11 07:15 | NUR ---
assisted up to bathroom and voided qs, had been inontinent of urine and care provided, then out of bathroom and into chair for breakfast, full assessment completed, see interventions for further info, denies pain or needs
--- NOTE | 2021-05-11 08:39 | NUR ---
speech therapy in to work with patient
--- NOTE | 2021-05-11 09:30 | NUR ---
Family meeting conducted w/ pt & daughter, Janessa, via phone. Also present was the MD, PT, OT, ST, & director of product marketing. The team talked about how pt has been doing & any concerns & recommendations. Informed them of d/c for 05/13/21, w/ recommendation for home health PT/OT. The daughter stated the plan is for pt to come to stay in [place] w/ her for a while & inquired if pt s stay could be extended to end of week to allow her to travel to [place]. Told her that would be possible; however, she wants to visit w/ her brother before setting a d/c date. Otherwise, they were fine w/ how pt has been doing & did ask some questions which the team answered.
[2021-05-11 09:37] LABS: PROTHROMBIN TIME 22.4 SECONDS (9.7-12.8)
--- NOTE | 2021-05-11 10:29 | NUR ---
occupational therapy now in to work with patient
--- NOTE | 2021-05-11 11:59 | NUR ---
returned from physical therapy, sitting up in chair having lunch
[2021-05-11 12:26] VITALS: BP 93/39; PULSE 59
--- NOTE | 2021-05-11 13:09 | NUR ---
shift report given to DANIEL Jeong
--- NOTE | 2021-05-11 13:35 | NUR ---
1000 MG Tylenol give po as ordered. Pt resting in bed. Denies needs at this time
[2021-05-11 16:54] VITALS: BP 137/63; PULSE 64; TEMP 98.2
--- NOTE | 2021-05-11 20:35 | NUR ---
PT RESTING IN BED. NO NEEDS AT THIS TIME.
[2021-05-11 23:56] VITALS: BP 122/67; PULSE 87; TEMP 97.9
[2021-05-12 05:26] VITALS: BP 144/52; PULSE 66; TEMP 98.1
--- NOTE | 2021-05-12 06:56 | NUR ---
bedside shift report received from DANIEL Renteria
--- NOTE | 2021-05-12 07:40 | NUR ---
up and about in room independently, has had breakfast, full assessment completed, see interventions for further info, denies needs at this time
[2021-05-12 10:10] LABS: INR 1.8 (0.8-3.0); PROTHROMBIN TIME 20.5 SECONDS (9.7-12.8)
--- NOTE | 2021-05-12 10:44 | NUR ---
out of room and working with therapy
--- NOTE | 2021-05-12 12:01 | NUR ---
returned from therapy and resting in recliner
[2021-05-12 12:02] VITALS: BP 135/57; PULSE 59; TEMP 97.9
--- NOTE | 2021-05-12 14:09 | NUR ---
Received call from pt's daughter, Janessa. She asked if pt could be d/c'd on , 05/14/21, late in the afternoon. Told her that would be fine & inquired about the time & was told around 6:30 pm. She also provided SW w/ the contact information for Outpatient PT that was used when pt was in [place] last time, [facility] ([phone]).
--- NOTE | 2021-05-12 14:15 | NUR ---
back in bed after therapy and watching TV, denies needs
--- NOTE | 2021-05-12 16:21 | NUR ---
sitting up on side of bed, denies needs
--- NOTE | 2021-05-12 17:39 | NUR ---
had supper and tolerated well, denies needs
[2021-05-12 18:00] VITALS: BP 89/41; PULSE 86; TEMP 98.2
--- NOTE | 2021-05-12 18:38 | NUR ---
RECEIVED CHANGE OF SHIFT REPORT FROM DAY SHIFT RN.
--- NOTE | 2021-05-12 18:40 | NUR ---
shift repoert given to DANIEL Lester
[2021-05-12 22:37] VITALS: BP 123/45; PULSE 71; TEMP 97.9
--- NOTE | 2021-05-13 02:49 | NUR ---
PATIENT UP IN ROOM PER SELF WITH NO REPORTED PROBLEMS OR CONCERNS.
[2021-05-13 05:02] VITALS: BP 96/48; PULSE 60; TEMP 98.1
--- NOTE | 2021-05-13 06:40 | NUR ---
Report received from DANIEL Avalos. Patient is sittig and recliner and denies pain but states her legs are sore from yesterday's physical therapy. Call light and bedside table are within reach.
--- NOTE | 2021-05-13 07:12 | NUR ---
CHANGE OF SHIFT REPORT GIVEN TO DAY SHIFT JUAN CARLOS SANCHEZ.
[2021-05-13 10:03] LABS: INR 2.1 (0.8-3.0)
--- NOTE | 2021-05-13 13:44 | NUR ---
Reviewed Team conference notes w/ pt. She stated she agreed w/ everything & feels she is ready to d/c tomorrow, 05/14/21. Informed her the team continues to recommend outpatient therapy & SW will set that up in [place] at the place she used when she stayed w/ her daughter last time. She was fine w/ the. Inquired if she had any questions or concerns about d/c, which she did not. Provided her w/ copy of Team conference notes. Reviewed the Medicare Rights from w/ pt, which she signed.
[2021-05-13 18:01] VITALS: BP 130/60; PULSE 65; TEMP 98
--- NOTE | 2021-05-13 19:00 | NUR ---
RECEIVED CHANGE OF SHIFT REPORT FROM DAY SHIFT RN. UP IN ROOM PER SELF WITH NO REPORTED PROBLEMS OR CONCERNS. ANTICIPATES DISCHARGE TO HOME TOMORROW.
[2021-05-13 21:06] VITALS: BP 131/49; PULSE 61; TEMP 98.4
[2021-05-14 05:35] VITALS: BP 128/59; PULSE 69; TEMP 97.9
--- NOTE | 2021-05-14 07:00 | NUR ---
CHANGE OF SHIFT REPORT GIVEN TO DAY SHIFT RNJANE.
--- NOTE | 2021-05-14 09:28 | NUR ---
PT ASSESSED. NO COMPLAINTS OF PAIN OR DYPNEA. NO SIGNS OR SYMPTOMS OF DISTRESS. CALL LIGHT WITHIN REACH
[2021-05-14 09:53] LABS: INR 2.2 (0.8-3.0); PROTHROMBIN TIME 24.9 SECONDS (9.7-12.8)
--- NOTE | 2021-05-14 10:00 | NUR ---
Contacted [facility], [place], to set up initial PT eval. They have multiple locations & daughter had not informed SW of which location was her preference. Faxed referral information & [facility] will contact daughter to set up the initial PT appointment.
[2021-05-14] MEDS ORDERED: TYLENOL 500MG500 MG PO (11:03)
[2021-05-14] MEDS ORDERED: NORCO 325 MG-51 TAB PO (11:05)
[2021-05-14 11:38] VITALS: BP 106/52; PULSE 59
--- NOTE | 2021-05-14 18:12 | NUR ---
PT DISCHARGE TEACHING COMPLETE. NO COMPLAINTS OF PAIN OR DYSPNEA. NO SIGNS OR SYMPTOMS OF DISTRESS. ALL QUESTIONS ANSWERED. INFORMATION GIVEN ABOUT MEDICATIONS AND FOLLOW UP APPOITNMENTS
== END 2021-05-14 18:14 | disposition home or self-care (01) | DRG 560 ==
PROVIDERS: Internal Medicine; ADMIT Physical Medicine & Rehabilitation Sports Medicine
DX: S72.141D Displaced intertrochanteric fracture of right femur, subsequent encounter for closed fracture with routine healing (principal); E87.1 Hypo-osmolality and hyponatremia; N39.0 Urinary tract infection, site not specified; I48.0 Paroxysmal atrial fibrillation; D63.1 Anemia in chronic kidney disease; I27.29 Other secondary pulmonary hypertension; E87.6 Hypokalemia; I36.8 Other nonrheumatic tricuspid valve disorders; I25.10 Atherosclerotic heart disease of native coronary artery without angina pectoris; E78.5 Hyperlipidemia, unspecified; R26.89 Other abnormalities of gait and mobility; E03.9 Hypothyroidism, unspecified; G47.00 Insomnia, unspecified; I12.9 Hypertensive chronic kidney disease with stage 1 through stage 4 chronic kidney disease, or unspecified chronic kidney disease; N18.30 Chronic kidney disease, stage 3 unspecified; W01.0XXD Fall on same level from slipping, tripping and stumbling without subsequent striking against object, subsequent encounter; Y92.009 Unspecified place in unspecified non-institutional (private) residence as the place of occurrence of the external cause; Z79.82 Long term (current) use of aspirin; Z73.6 Limitation of activities due to disability; Z85.828 Personal history of other malignant neoplasm of skin; Z79.899 Other long term (current) drug therapy; Z79.2 Long term (current) use of antibiotics; Z79.01 Long term (current) use of anticoagulants; Z79.891 Long term (current) use of opiate analgesic; Z95.0 Presence of cardiac pacemaker; B96.20 Unspecified Escherichia coli [E. coli] as the cause of diseases classified elsewhere
CPT/HCPCS: 99223; 99231-AI; 99232-AI; J1650